=== PATIENT | male | born 1990 | race American Indian/Alaskan Native ===

== ENCOUNTER 2020-05-07 02:17 | Emergency (ER) | payer SELFPAY ==
[2020-05-07 02:26] VITALS: BP 117/44
[2020-05-07] MEDS ORDERED: dexAMETHasone 20 MG/5 ML VIAL IV ONE (03:23)
[2020-05-07] MEDS ORDERED: diphenhydrAMINE 50 MG/ML VIAL IV ONE (03:23)
[2020-05-07] MEDS ORDERED: FAMOTIDINE 20 MG/2 ML INJ IV ONE (03:23)
[2020-05-07] MEDS ORDERED: SODIUM CHLORIDE 0.9% 1000 ML 1,000 ML IV ONE (03:23)
--- NOTE | 2020-05-07 03:26 | Emergency Department Report ---
ED Rash HPI - HPI Chief Complaint: Allergic Reaction Stated Complaint: ALLERGIC REACTION Time Seen by Provider: 05/07/20 03:19 Duration: 1week Suspected Cause: Food Rash Symptoms: Yes Itching, No Facial Swelling, No Tongue/Oral Swelling, No Breathing Difficulties, No Choking Sensation, No Wheezing/Dyspnea, No Peeling, No Blistering, No Fever, No Lightheaded, No Malaise, No Myalgias Severity: severe Other History: 29-year-old -Japanese male presents to the emergency room complaining of allergic reaction rash that itches that started last Thursday. Patient states he saw his MD on and has been taking prescription prednisone and Benadryl. Patient reports that he completed his prednisone on Thursday and last took Benadryl yesterday morning. Patient stated he had eaten some shrimp and that is when he started having the allergic reaction. Patient denies any shortness of breath chest pain nausea vomiting. ED Review of Systems ROS: Stated complaint: ALLERGIC REACTION Other details as noted in HPI ED Past Medical Hx - Past Medical History Previous Medical History?: No - Surgical History Past Surgical History?: Yes Additional Surgical History: right leg surgery for knee and tibia- screws placed - Social History Smoking Status: Never Smoker Substance Use Type: None - Medications Home Medications: Home Medications Medication Instructions Recorded Confirmed Last Taken Type Cyclobenzaprine [Flexeril] 10 mg PO QHS #20 tablet 10/10/18 Unknown Rx Ketorolac [Toradol] 10 mg PO Q6H PRN #30 tablet 10/10/18 Unknown Rx Famotidine [Pepcid] 20 mg PO BID 5 Days #10 tablet 05/07/20 Unknown Rx Loratadine 10 mg PO QDAY #20 tablet 05/07/20 Unknown Rx predniSONE [Deltasone] 40 mg PO QDAY 5 Days #10 tab 05/07/20 Unknown Rx Rash Exam - Exam General: Vital signs noted. No distress. Alert and acting appropriately. HEENT: No Periorbital Edema, No Conjuctival Injection, No Chemosis, No Perioral Edema, No Tongue Edema, No Uvular Edema, No Compromised Airway, No Drooling Lungs: Yes Good Air Exchange (Normal Breath Sounds), No Wheezes, No Ronchi, No Stridor, No Cough, No Labored Respirations, No Retractions, No Use of Accessory Muscles, No Other Abnormal Lung Sounds Skin: Yes Urticarial Rash, No Maculopapular Rash, No Morbilliform rash, No Bulla(e), No Excoriations, No Weeping, No Tenderness, No Erythema, No Edema, No Encrustations, No Other Other: Positive: Abdomen Normal, Neurologic Normal, Musculoskeletal Normal ED Course Vital Signs 05/07/20 02:21 Temperature 98.4 F Pulse Rate 69 Respiratory 18 Rate Blood Pressure 117/44 O2 Sat by Pulse 97 Oximetry - Reevaluation(s) Reevaluation #1: 05/07/20 04:19 Patient reports that he feels much better. ED Medical Decision Making - Medical Decision Making 29-year-old -Japanese male presents to the emergency room complaining of allergic reaction rash that itches that started last Thursday. Patient states he saw his MD on and has been taking prescription prednisone and Benadryl. Patient reports that he completed his prednisone on Thursday and last took Benadryl yesterday morning. Patient stated he had eaten some shrimp and that is when he started having the allergic reaction. Patient denies any shortness of breath chest pain nausea vomiting. IV, dexamethasone 10 mg IV Pepcid 20 mg IV and Benadryl 50 mg IV and normal saline 1 L Critical care attestation.: If time is entered above; I have spent that time in minutes in the direct care of this critically ill patient, excluding procedure time. ED Disposition Clinical Impression: Urticaria, Allergic reaction Disposition: [id number]-01 TO HOME OR SELFCARE Is pt being admited?: No Does the pt Need Aspirin: No Condition: Stable Instructions: Urticaria (ED), Food Allergy (ED) Additional Instructions: Take medication as prescribed. Follow-up with an blanking press operator. Prescriptions: predniSONE [Deltasone] 40 mg PO QDAY 5 Days #10 tab Loratadine 10 mg PO QDAY #20 tablet Famotidine [Pepcid] 20 mg PO BID 5 Days #10 tablet Referrals: PRIMARY CARE, [Primary Care Provider] - 3-5 Days [facility] [Provider Group] - 3-5 Days Forms: Work/School Release Form(ED)
== END 2020-05-07 04:35 | disposition home or self-care (01) ==
LOC: ED 02:17
DX: T78.40XA Allergy, unspecified, initial encounter (principal); L50.8 Other urticaria; Z79.899 Other long term (current) drug therapy; X58.XXXA Exposure to other specified factors, initial encounter
CPT/HCPCS: 96374; 96375; 99282; J1100; J1200; J7030